=== PATIENT | male | born 1990 | race Caucasian/White ===

== ENCOUNTER 2017-07-02 08:40 | Emergency (ER) | payer OTHER ==
[~2017-07-02] VITALS: Ht 172.7 cm; Wt 75.3 kg
[2017-07-02 08:47] VITALS: Ht 172.7 cm; Wt 75.3 kg
[2017-07-02 10:52] VITALS: BP 123/66
== END 2017-07-02 10:52 | disposition home or self-care (01) ==
LOC: ED 08:40
DX: J02.9 Acute pharyngitis, unspecified (principal); J98.01 Acute bronchospasm; M79.1 Myalgia

== ENCOUNTER 2017-08-06 06:00 | Emergency (ER) | payer OTHER ==
[~2017-08-06] VITALS: Ht 172.7 cm; Wt 77.1 kg
[2017-08-06 06:01] VITALS: Ht 172.7 cm; Wt 77.1 kg
[2017-08-06 07:03] LABS: BASOPHIL % 0.3 % (0-2); PLATELET COUNT 283 x10^3mcL (130-400); RED CELL DISTRIBUTION WIDTH 12.9 % (11.5-14.5)
[2017-08-06 07:20] LABS: CALCIUM 8.8 mg/dL (8.5-10.1); CARBON DIOXIDE 28.5 mmol/L (21-32); CHLORIDE SERUM 104 mmol/L (98-107); GFR1 > 60 mL/min; GLUCOSE SERUM 97 mg/dL (74-106); POTASSIUM SERUM 3.8 mmol/L (3.5-5.1); SODIUM SERUM 138 mmol/L (136-145)
[2017-08-06 07:23] LABS: ALBUMIN 3.7 g/dL (3.4-5.0); ALKALINE PHOSPHATASE 81 U/L (46-116); ALT/SGPT 23 U/L (16-63); AST/SGOT 17 U/L (15-37); BILIRUBIN TOTAL 0.4 mg/dL (0.20-1.00); TOTAL PROTEIN, SERUM 6.8 g/dL (6.4-8.2)
[2017-08-06 08:15] LABS: UA SPECIFIC GRAVITY >=1.030 (1.005-1.035); microscopic required? YES; urine erythrocyte 3+ (NEGATIVE)
[2017-08-06 08:35] VITALS: BP 120/79
== END 2017-08-06 08:35 | disposition home or self-care (01) ==
LOC: ED 06:00
PROVIDERS: Specialist
DX: N23 Unspecified renal colic (principal)
CPT/HCPCS: 36415; J1885; J3010; Q0162